=== PATIENT | male | born 1970 | race Caucasian/White ===

== ENCOUNTER 2018-04-16 17:52 | Inpatient (IN) | payer OTHER ==
--- NOTE | 2018-04-16 20:49 | HP ---
CIWA Score - CIWA Score Nausea/Vomitin Muscle Tremors: 4-Moderate,w/Arms Extend Anxiety: 4-Mod. Anxious/Guarded Agitation: 4-Moderately Restless Paroxysmal Sweats: 1-Minimal Palms Moist Orientation: 1-Uncertain about Date Tacttile Disturbances: 0-None Auditory Disturbances: 0-None Visual Disturbances: 0-None Headache: 0-None Present CIWA-Ar Total Score: 17 Admission ROS S - HPI Chief Complaint: Alcohol withdrawal symptoms Allergies/Adverse Reactions: Allergies Allergy/AdvReac Type Severity Reaction Status Date / Time No Known Allergies Allergy Verified 04/16/18 20:16 History of Present Illness: 48 years old male with a long history of alcohol dependence is seeking admission to detox. Patient was in detox at [facility] in September 2017 and reports insignificant period of sobriety. He has medical history of depression and anxiety. He was referred from [facility] ER today. Patient reports that he is homeless and has a son. This is his first admission to [facility]. Exam Limitations: No Limitations - Ebola screening Have you traveled outside of the country in the last 21 days: No Have you had contact with anyone from an Ebola affected area: No Have you been sick,other than usual withdrawal symptoms: No Do you have a fever: No - Review of Systems Constitutional: Chills, Loss of Appetite, Malaise, Night Sweats, Changes in sleep EENT: reports: No Symptoms Reported Respiratory: reports: No Symptoms reported Cardiac: reports: No Symptoms Reported GI: reports: Diarrhea (x 2), Nausea, Poor Appetite, Poor Fluid Intake, Abdominal cramping : reports: No Symptoms Reported Musculoskeletal: reports: Back Pain, Muscle Pain Integumentary: reports: Dryness, Flushing Neuro: reports: Tingling, Tremors Endocrine: reports: No Symptoms Reported Hematology: reports: No Symptoms Reported Psychiatric: reports: Agitated, Anxious, Depressed Other Systems: Reviewed and Negative Patient History - Patient Medical History Hx Anemia: No Hx Asthma: No Hx Chronic Obstructive Pulmonary Disease (COPD): No Hx Cancer: No Hx Cardiac Disorders: No Hx Hypertension: No Hx Hypercholesterolemia: No Hx Pacemaker: No HX Cerebrovascular Accident: No Hx Seizures: No Hx Diabetes: No Hx Gastrointestinal Disorders: No Hx Liver Disease: No Hx Genitourinary Disorders: No Hx Sexually Transmitted Disorders: No Hx Renal Disease (ESRD): No Hx Thyroid Disease: No Hx Human Immunodeficiency Virus (HIV): No (Negative 2016) Hx Hepatitis C: No Hx Depression: Yes (Not on medication) Hx Suicide Attempt: No (Denies suicide attempt and suicidal ideation at this time) Hx Bipolar Disorder: No Hx Schizophrenia: No Other Medical History: Anxiety - Not on medication - Patient Surgical History Past Surgical History: Yes Hx Neurologic Surgery: No Hx Cataract Extraction: No Hx Cardiac Surgery: No Hx Lung Surgery: No Hx Breast Surgery: No Hx Breast Biopsy: No Hx Abdominal Surgery: No Hx Appendectomy: No Hx Cholecystectomy: No Hx Genitourinary Surgery: No Hx Section: No Hx Orthopedic Surgery: Yes Other Surgical History: BACK SURGERY IN 2012 Anesthesia Reaction: No - PPD History Previous Implant?: Yes Documented Results: Negative w/o proof Implanted On Prior [facility] Admission?: No PPD to be Administered?: Yes - Reproductive History Patient is a Female of Child Bearing Age (11 -55 yrs old): No (MALE) - Smoking Cessation Smoking history: Never smoked Have you smoked in the past 12 months: No Hx Chewing Tobacco Use: No Initiated information on smoking cessation: No - Substances Abused Alcohol Route: Oral Frequency: Daily Amount used: 3 PINTS VODKA Age of first use: 11 Date of Last Use: 04/16/18 Heroin Route: Inhalation Frequency: 1-3 times last 30 days Amount used: 1 BUNDLE Age of first use: 47 Date of Last Use: 04/02/18 Family Disease History - Family Disease History Family Disease History: CA: Father (Lung), Mother (breast) Admission Physical Exam BHS - Vital Signs Vital Signs: Vital Signs - 24 hr 04/16/18 18:18 Temperature 98.7 F Pulse Rate 93 H Respiratory 18 Rate Blood Pressure 138/84 - Physical General Appearance: Yes: Moderate Distress, Tremorous, Irritable, Sweating, Anxious HEENTM: Yes: EOMI, Normal ENT Inspection, Normocephalic, Normal Voice, ALMITA Respiratory: Yes: Lungs Clear, Normal Breath Sounds, No Respiratory Distress Neck: Yes: Supple Breast: Yes: Breast Exam Deferred Cardiology: Yes: Tachycardia Abdominal: Yes: Normal Bowel Sounds, Soft Genitourinary: Yes: Within Normal Limits Back: Yes: Normal Inspection Musculoskeletal: Yes: Within Normal Limits Extremities: Yes: Tremors Neurological: Yes: Alert, Normal Mood/Affect Integumentary: Yes: Dry Lymphatic: Yes: Within Normal Limits - Diagnostic (1) Alcohol dependence with uncomplicated withdrawal Current Visit: Yes Status: Chronic (2) Depression Current Visit: Yes Status: Chronic (3) Anxiety Current Visit: Yes Status: Chronic Cleared for Admission [facility] - Detox or Rehab [facility] Level of Care: Medically Managed Detox Regimen/Protocol: Librium [facility] Breath Alcohol Content Breath Alcohol Content: 0.251 Urine Drug Screen - Results Drug Screen Negative: No Urine Drug Screen Results: BZO-Benzodiazepines
[2018-04-16] MEDS ORDERED: P-EPHED 60MG/TRIPROLIDI 2.5MG TABLET PO PRN (20:56)
[2018-04-16] MEDS ORDERED: MAG HYDROX/AL HYDROX/SIMETH 30 ML UNIT-DOSE CUP PO PRN (20:56)
[2018-04-16] MEDS ORDERED: chlordiazePOXIDE HCL 25 MG CAPSULE PO PRN (20:56)
[2018-04-16] MEDS ORDERED: ACETAMINOPHEN 325 MG TABLET (FP) PO PRN (20:56)
[2018-04-16] MEDS ORDERED: MENTHOL/PHENOL 1 EACH UD MM PRN (20:56)
[2018-04-16] MEDS ORDERED: NICOTINE POLACRILEX 2 MG GUM BC PRN (20:56)
[2018-04-16] MEDS ORDERED: MAGNESIUM HYDROX 2400MG/30ML ORAL SUSPENSION 30 ML CUP PO PRN (20:56)
[2018-04-16] MEDS ORDERED: LOPERAMIDE HCL 2 MG CAPSULE PO PRN (20:56)
[2018-04-16] MEDS ORDERED: MAGNESIUM CITRATE 300 ML BOTTLE PO PRN (20:56)
[2018-04-16] MEDS ORDERED: guaiFENesin/D-METHORPHAN HB 10 ML UNIT-DOSE CUPS PO PRN (20:56)
[2018-04-16] MEDS: chlordiazePOXIDE HCL 25 MG CAPSULE PO SCH (22:25)
[2018-04-16] MEDS: MELATONIN 5 MG TABLETS PO PRN (22:25)
[2018-04-16] MEDS: THIAMINE HCL 100 MG TABLET (FP) PO SCH (22:25)
[2018-04-16 23:04] LABS: URINE APPEARANCE CLEAR; URINE BILIRUBIN NEGATIVE (<2.0 mg/dL); URINE COLOR LTYELLOW; URINE GLUCOSE (UA) NEGATIVE (NEGATIVE); URINE KETONE NEGATIVE (NEGATIVE); URINE LEUK ESTERASE NEGATIVE (NEGATIVE); URINE NITRITE NEGATIVE (NEGATIVE); URINE PROTEIN NEGATIVE (NEGATIVE); URINE UROBILINOGEN NEGATIVE mg/dL (0.2-1.0)
[2018-04-17] MEDS: chlordiazePOXIDE HCL 25 MG CAPSULE PO SCH ×4 (06:44→22:15)
--- NOTE | 2018-04-17 10:15 | CONSULT ---
[facility] Psychiatric Consult - Data Date of interview: 04/17/18 Admission source: [facility] Identifying data: Patient is a 48 year old male, single father of one son, unemployed and currenmtly homeless. Substance Abuse History: drinking 3 pints of vodka daily, heroin 1-3 times last month. Medical History: back surgery in 2012. Psychiatric History: patient reports no history of psychiatric treatment, he is not ok now and does not need any medications. Physical/Sexual Abuse/Trauma History: denies Mental Status Exam - Mental Status Exam Alert and Oriented to: Time, Place, Person Cognitive Function: Good Patient Appearance: Unkempt Mood: Irritable Affect: Appropriate Patient Behavior: Cooperative Voice Loudness: Normal Thought Process: Intact Hallucinations: Denies Suicidal Ideation: Denies Homicidal Ideation: Denies Insight/Judgement: Fair Sleep: Fair Appetite: Fair Muscle strength/Tone: Normal Psychiatric Findings - Problem List ([place] 1, 2,3) (1) Opioid abuse Current Visit: Yes Status: Acute (2) Alcohol-induced anxiety disorder Current Visit: Yes Status: Acute (3) Alcohol dependence with uncomplicated withdrawal Current Visit: Yes Status: Chronic - Initial Treatment Plan Initial Treatment Plan: continue detox. protocol, no psychotropic medications at this point.
[2018-04-17 10:31] LABS: HEMATOCRIT 37.3 % (35.4-49); HEMOGLOBIN 12.3 GM/dL (11.7-16.9); MCH 29.6 pg (25.7-33.7); MCHC 33.1 g/dl (32.0-35.9); MEAN CELL VOLUME 89.3 fl (80-96); MEAN PLT VOLUME 6.7 fl (7.5-11.1); PLATELET COUNT 258 K/MM3 (134-434); RBC 4.17 M/mm3 (4.00-5.60); RDW 17.8 % (11.9-15.9); WHITE BLOOD COUNT 4.7 K/mm3 (4.0-10.0)
[2018-04-17 10:48] LABS: ALBUMIN 3.1 g/dl (3.4-5.0); ANION GAP 9 (8-16); BLOOD UREA NITROGEN 16 mg/dL (7-18); CALCIUM 8.2 mg/dL (8.5-10.1); CHLORIDE 108 mmol/L (98-107); CO2 25 mmol/L (21-32); GLUCOSE,RANDOM 76 mg/dL (74-106); POTASSIUM 3.7 mmol/L (3.5-5.1); SODIUM 142 mmol/L (136-145)
[2018-04-17 10:59] LABS: ALK PHOS 62 U/L (45-117); BILIRUBIN,TOTAL 0.6 mg/dL (0.2-1.0); SGOT/AST 31 U/L (15-37); SGPT/ALT 22 U/L (12-78); TOT PROT 6.4 g/dl (6.4-8.2)
[2018-04-17] MEDS: PRENATAL VITAMINS W/ FOLIC ACID TABLET (FP) PO SCH (11:37)
[2018-04-17] MEDS: NICOTINE 14 MG/24 HOURS TOPICAL PATCH TD SCH (11:38)
--- NOTE | 2018-04-17 13:56 | PN ---
S CIWA - CIWA Score Nausea/Vomitin Muscle Tremors: 3 Anxiety: 3 Agitation: 2 Paroxysmal Sweats: 1-Minimal Palms Moist Orientation: 0-Oriented Tacttile Disturbances: 1-Very Mild Itch/Numbness Auditory Disturbances: 1-Very Mild Visual Disturbances: 0-None Headache: 2-Mild CIWA-Ar Total Score: 16 BHS Progress Note (SOAP) Subjective: ALERT,IRRITABLE,ANXIOUS,INTERRUPTED SLEEP,TREMOR Objective: 04/17/18 13:54 Vital Signs Temperature 97.7 F 04/17/18 09:37 Pulse Rate 78 04/17/18 09:37 Respiratory Rate 20 04/17/18 09:37 Blood Pressure 148/86 04/17/18 09:37 O2 Sat by Pulse Oximetry (%) Laboratory Last Values WBC 4.7 K/mm3 (4.0-10.0) 04/17/18 07:55 RBC 4.17 M/mm3 (4.00-5.60) 04/17/18 07:55 Hgb 12.3 GM/dL (11.7-16.9) 04/17/18 07:55 Hct 37.3 % (35.4-49) 04/17/18 07:55 MCV 89.3 fl (80-96) 04/17/18 07:55 MCH 29.6 pg (25.7-33.7) 04/17/18 07:55 MCHC 33.1 g/dl (32.0-35.9) 04/17/18 07:55 RDW 17.8 % (11.9-15.9) H 04/17/18 07:55 Plt Count 258 K/MM3 (134-434) 04/17/18 07:55 MPV 6.7 fl (7.5-11.1) L 04/17/18 07:55 Sodium 142 mmol/L (136-145) 04/17/18 07:55 Potassium 3.7 mmol/L (3.5-5.1) 04/17/18 07:55 Chloride 108 mmol/L (98-107) H 04/17/18 07:55 Carbon Dioxide 25 mmol/L (21-32) 04/17/18 07:55 Anion Gap 9 (8-16) 04/17/18 07:55 BUN 16 mg/dL (7-18) 04/17/18 07:55 Creatinine 1.0 mg/dL (0.7-1.3) 04/17/18 07:55 Creat Clearance w eGFR > 60 (>60) 04/17/18 07:55 Random Glucose 76 mg/dL (74-106) 04/17/18 07:55 Calcium 8.2 mg/dL (8.5-10.1) L 04/17/18 07:55 Total Bilirubin 0.6 mg/dL (0.2-1.0) 04/17/18 07:55 AST 31 U/L (15-37) 04/17/18 07:55 ALT 22 U/L (12-78) 04/17/18 07:55 Alkaline Phosphatase 62 U/L (45-117) 04/17/18 07:55 Total Protein 6.4 g/dl (6.4-8.2) 04/17/18 07:55 Albumin 3.1 g/dl (3.4-5.0) L 04/17/18 07:55 Urine Color Ltyellow 04/16/18 22:50 Urine Appearance Clear 04/16/18 22:50 Urine pH 7.0 (5.0-8.0) 04/16/18 22:50 Ur Specific [place] 1.016 (1.001-1.035) 04/16/18 22:50 Urine Protein Negative (NEGATIVE) 04/16/18 22:50 Urine Glucose (UA) Negative (NEGATIVE) 04/16/18 22:50 Urine Ketones Negative (NEGATIVE) 04/16/18 22:50 Urine Blood Negative (NEGATIVE) 04/16/18 22:50 Urine Nitrite Negative (NEGATIVE) 04/16/18 22:50 Urine Bilirubin Negative (<2.0 mg/dL) 04/16/18 22:50 Urine Urobilinogen Negative mg/dL (0.2-1.0) 04/16/18 22:50 Ur Leukocyte Esterase Negative (NEGATIVE) 04/16/18 22:50 RPR Titer Nonreactive (NONREACTIVE) 04/17/18 07:55 Assessment: 04/17/18 13:55 WITHDRAWAL SYMPTOM Plan: CONTINUE DETOX
[2018-04-17] MEDS: MELATONIN 5 MG TABLETS PO PRN (22:15)
[2018-04-17] MEDS: THIAMINE HCL 100 MG TABLET (FP) PO SCH (22:15)
[2018-04-18] MEDS: chlordiazePOXIDE HCL 25 MG CAPSULE PO SCH ×3 (05:26→16:45)
[2018-04-18] MEDS: NICOTINE 14 MG/24 HOURS TOPICAL PATCH TD SCH (10:05)
[2018-04-18] MEDS: PRENATAL VITAMINS W/ FOLIC ACID TABLET (FP) PO SCH (10:05)
--- NOTE | 2018-04-18 11:44 | PN ---
S CIWA - CIWA Score Nausea/Vomitin-Mild Nausea/No Vomiting Muscle Tremors: 4-Moderate,w/Arms Extend Anxiety: 3 Agitation: 3 Paroxysmal Sweats: 1-Minimal Palms Moist Orientation: 0-Oriented Tacttile Disturbances: 1-Very Mild Itch/Numbness Auditory Disturbances: 0-None Visual Disturbances: 0-None Headache: 0-None Present CIWA-Ar Total Score: 13 BHS Progress Note (SOAP) Subjective: sweat tremor anxiety irritable restlessness Objective: 04/18/18 11:44 Vital Signs Temperature 97.9 F 04/18/18 11:07 Pulse Rate 78 04/18/18 11:07 Respiratory Rate 20 04/18/18 11:07 Blood Pressure 121/79 04/18/18 11:07 O2 Sat by Pulse Oximetry (%) Laboratory Last Values WBC 4.7 K/mm3 (4.0-10.0) 04/17/18 07:55 RBC 4.17 M/mm3 (4.00-5.60) 04/17/18 07:55 Hgb 12.3 GM/dL (11.7-16.9) 04/17/18 07:55 Hct 37.3 % (35.4-49) 04/17/18 07:55 MCV 89.3 fl (80-96) 04/17/18 07:55 MCH 29.6 pg (25.7-33.7) 04/17/18 07:55 MCHC 33.1 g/dl (32.0-35.9) 04/17/18 07:55 RDW 17.8 % (11.9-15.9) H 04/17/18 07:55 Plt Count 258 K/MM3 (134-434) 04/17/18 07:55 MPV 6.7 fl (7.5-11.1) L 04/17/18 07:55 Sodium 142 mmol/L (136-145) 04/17/18 07:55 Potassium 3.7 mmol/L (3.5-5.1) 04/17/18 07:55 Chloride 108 mmol/L (98-107) H 04/17/18 07:55 Carbon Dioxide 25 mmol/L (21-32) 04/17/18 07:55 Anion Gap 9 (8-16) 04/17/18 07:55 BUN 16 mg/dL (7-18) 04/17/18 07:55 Creatinine 1.0 mg/dL (0.7-1.3) 04/17/18 07:55 Creat Clearance w eGFR > 60 (>60) 04/17/18 07:55 Random Glucose 76 mg/dL (74-106) 04/17/18 07:55 Calcium 8.2 mg/dL (8.5-10.1) L 04/17/18 07:55 Total Bilirubin 0.6 mg/dL (0.2-1.0) 04/17/18 07:55 AST 31 U/L (15-37) 04/17/18 07:55 ALT 22 U/L (12-78) 04/17/18 07:55 Alkaline Phosphatase 62 U/L (45-117) 04/17/18 07:55 Total Protein 6.4 g/dl (6.4-8.2) 04/17/18 07:55 Albumin 3.1 g/dl (3.4-5.0) L 04/17/18 07:55 Urine Color Ltyellow 04/16/18 22:50 Urine Appearance Clear 04/16/18 22:50 Urine pH 7.0 (5.0-8.0) 04/16/18 22:50 Ur Specific [place] 1.016 (1.001-1.035) 04/16/18 22:50 Urine Protein Negative (NEGATIVE) 04/16/18 22:50 Urine Glucose (UA) Negative (NEGATIVE) 04/16/18 22:50 Urine Ketones Negative (NEGATIVE) 04/16/18 22:50 Urine Blood Negative (NEGATIVE) 04/16/18 22:50 Urine Nitrite Negative (NEGATIVE) 04/16/18 22:50 Urine Bilirubin Negative (<2.0 mg/dL) 04/16/18 22:50 Urine Urobilinogen Negative mg/dL (0.2-1.0) 04/16/18 22:50 Ur Leukocyte Esterase Negative (NEGATIVE) 04/16/18 22:50 RPR Titer Nonreactive (NONREACTIVE) 04/17/18 07:55 lab noted Assessment: 04/18/18 11:44 withdrawal sx Plan: continue detox
--- NOTE | 2018-04-18 13:28 | EKG ---
Test Reason : Blood Pressure : / mmHG Vent. Rate : 070 BPM Atrial Rate : 070 BPM P-R Int : 176 ms QRS Dur : 120 ms QT Int : 416 ms P-R-T Axes : 031 -37 -09 degrees QTc Int : 449 ms NORMAL SINUS RHYTHM LEFT AXIS DEVIATION NON-SPECIFIC INTRA-VENTRICULAR CONDUCTION DELAY NONSPECIFIC T WAVE ABNORMALITY ABNORMAL ECG NO PREVIOUS ECGS AVAILABLE Confirmed by MD Nicole, Merlin ([id number]) on 04/18/2018 1:27:54 PM Referred By: Rick Cruz Confirmed By:Merlin Rivera MD
[2018-04-18] MEDS: IBUPROFEN 400 MG TABLET (FP) PO PRN (16:45)
[2018-04-18] MEDS: chlordiazePOXIDE 5 MG CAPSULE PO SCH (22:15)
[2018-04-18] MEDS: THIAMINE HCL 100 MG TABLET (FP) PO SCH (22:15)
[2018-04-18] MEDS: MELATONIN 5 MG TABLETS PO PRN (22:17)
[2018-04-19] MEDS: chlordiazePOXIDE 5 MG CAPSULE PO SCH ×3 (06:02→17:47)
[2018-04-19] MEDS: IBUPROFEN 400 MG TABLET (FP) PO PRN ×2 (06:04→22:09)
[2018-04-19] MEDS: PRENATAL VITAMINS W/ FOLIC ACID TABLET (FP) PO SCH (10:06)
[2018-04-19] MEDS: NICOTINE 14 MG/24 HOURS TOPICAL PATCH TD SCH (10:07)
--- NOTE | 2018-04-19 11:24 | PN ---
BHS Progress Note (SOAP) Subjective: feeling better no tremor less sweat social with peers in day room Objective: 04/19/18 11:23 Vital Signs Temperature 97.7 F 04/19/18 10:02 Pulse Rate 79 04/19/18 10:02 Respiratory Rate 18 04/19/18 10:02 Blood Pressure 114/65 04/19/18 10:02 O2 Sat by Pulse Oximetry (%) Laboratory Last Values WBC 4.7 K/mm3 (4.0-10.0) 04/17/18 07:55 RBC 4.17 M/mm3 (4.00-5.60) 04/17/18 07:55 Hgb 12.3 GM/dL (11.7-16.9) 04/17/18 07:55 Hct 37.3 % (35.4-49) 04/17/18 07:55 MCV 89.3 fl (80-96) 04/17/18 07:55 MCH 29.6 pg (25.7-33.7) 04/17/18 07:55 MCHC 33.1 g/dl (32.0-35.9) 04/17/18 07:55 RDW 17.8 % (11.9-15.9) H 04/17/18 07:55 Plt Count 258 K/MM3 (134-434) 04/17/18 07:55 MPV 6.7 fl (7.5-11.1) L 04/17/18 07:55 Sodium 142 mmol/L (136-145) 04/17/18 07:55 Potassium 3.7 mmol/L (3.5-5.1) 04/17/18 07:55 Chloride 108 mmol/L (98-107) H 04/17/18 07:55 Carbon Dioxide 25 mmol/L (21-32) 04/17/18 07:55 Anion Gap 9 (8-16) 04/17/18 07:55 BUN 16 mg/dL (7-18) 04/17/18 07:55 Creatinine 1.0 mg/dL (0.7-1.3) 04/17/18 07:55 Creat Clearance w eGFR > 60 (>60) 04/17/18 07:55 Random Glucose 76 mg/dL (74-106) 04/17/18 07:55 Calcium 8.2 mg/dL (8.5-10.1) L 04/17/18 07:55 Total Bilirubin 0.6 mg/dL (0.2-1.0) 04/17/18 07:55 AST 31 U/L (15-37) 04/17/18 07:55 ALT 22 U/L (12-78) 04/17/18 07:55 Alkaline Phosphatase 62 U/L (45-117) 04/17/18 07:55 Total Protein 6.4 g/dl (6.4-8.2) 04/17/18 07:55 Albumin 3.1 g/dl (3.4-5.0) L 04/17/18 07:55 Urine Color Ltyellow 04/16/18 22:50 Urine Appearance Clear 04/16/18 22:50 Urine pH 7.0 (5.0-8.0) 04/16/18 22:50 Ur Specific [place] 1.016 (1.001-1.035) 04/16/18 22:50 Urine Protein Negative (NEGATIVE) 04/16/18 22:50 Urine Glucose (UA) Negative (NEGATIVE) 04/16/18 22:50 Urine Ketones Negative (NEGATIVE) 04/16/18 22:50 Urine Blood Negative (NEGATIVE) 04/16/18 22:50 Urine Nitrite Negative (NEGATIVE) 04/16/18 22:50 Urine Bilirubin Negative (<2.0 mg/dL) 04/16/18 22:50 Urine Urobilinogen Negative mg/dL (0.2-1.0) 04/16/18 22:50 Ur Leukocyte Esterase Negative (NEGATIVE) 04/16/18 22:50 RPR Titer Nonreactive (NONREACTIVE) 04/17/18 07:55 lab noted Assessment: 04/19/18 11:24 mild withdrawal sx Plan: medically supervised detox
[2018-04-19] MEDS: chlordiazePOXIDE HCL 10 MG CAPSULE PO SCH (22:08)
[2018-04-19] MEDS: THIAMINE HCL 100 MG TABLET (FP) PO SCH (22:08)
[2018-04-19] MEDS: MELATONIN 5 MG TABLETS PO PRN (22:08)
[2018-04-20] MEDS: chlordiazePOXIDE HCL 10 MG CAPSULE PO SCH (07:12)
[2018-04-20 07:50] VITALS: BP 124/74; PULSE 72; TEMP 97.5
--- NOTE | 2018-04-20 10:54 | DS ---
[facility] Detox Discharge Summary Admission Date: 04/16/18 Discharge Date: 04/20/18 - History Present History: Alcohol Dependence Additional Comments: 48 years old male admitted 04/16/18 for alcohol withdrawal sx completed alcohol detox regimen tolerated well denies alcohol withdrawal sx alert oriented x 3 no acute distress aftercare as per patient preference that [facility] for recovery "my friend pick me up" patient wants to maintain sober through recovery process - Physical Exam Results Vital Signs: Vital Signs Temperature 97.5 F L 04/20/18 07:49 Pulse Rate 72 04/20/18 07:49 Respiratory Rate 18 04/20/18 07:49 Blood Pressure 124/74 04/20/18 07:49 O2 Sat by Pulse Oximetry (%) Pertinent Admission Physical Exam Findings: withdrawal sx Vital Signs Temperature 97.5 F L 04/20/18 07:49 Pulse Rate 72 04/20/18 07:49 Respiratory Rate 18 04/20/18 07:49 Blood Pressure 124/74 04/20/18 07:49 O2 Sat by Pulse Oximetry (%) Laboratory Last Values WBC 4.7 K/mm3 (4.0-10.0) 04/17/18 07:55 RBC 4.17 M/mm3 (4.00-5.60) 04/17/18 07:55 Hgb 12.3 GM/dL (11.7-16.9) 04/17/18 07:55 Hct 37.3 % (35.4-49) 04/17/18 07:55 MCV 89.3 fl (80-96) 04/17/18 07:55 MCH 29.6 pg (25.7-33.7) 04/17/18 07:55 MCHC 33.1 g/dl (32.0-35.9) 04/17/18 07:55 RDW 17.8 % (11.9-15.9) H 04/17/18 07:55 Plt Count 258 K/MM3 (134-434) 04/17/18 07:55 MPV 6.7 fl (7.5-11.1) L 04/17/18 07:55 Sodium 142 mmol/L (136-145) 04/17/18 07:55 Potassium 3.7 mmol/L (3.5-5.1) 04/17/18 07:55 Chloride 108 mmol/L (98-107) H 04/17/18 07:55 Carbon Dioxide 25 mmol/L (21-32) 04/17/18 07:55 Anion Gap 9 (8-16) 04/17/18 07:55 BUN 16 mg/dL (7-18) 04/17/18 07:55 Creatinine 1.0 mg/dL (0.7-1.3) 04/17/18 07:55 Creat Clearance w eGFR > 60 (>60) 04/17/18 07:55 Random Glucose 76 mg/dL (74-106) 04/17/18 07:55 Calcium 8.2 mg/dL (8.5-10.1) L 04/17/18 07:55 Total Bilirubin 0.6 mg/dL (0.2-1.0) 04/17/18 07:55 AST 31 U/L (15-37) 04/17/18 07:55 ALT 22 U/L (12-78) 04/17/18 07:55 Alkaline Phosphatase 62 U/L (45-117) 04/17/18 07:55 Total Protein 6.4 g/dl (6.4-8.2) 04/17/18 07:55 Albumin 3.1 g/dl (3.4-5.0) L 04/17/18 07:55 Urine Color Ltyellow 04/16/18 22:50 Urine Appearance Clear 04/16/18 22:50 Urine pH 7.0 (5.0-8.0) 04/16/18 22:50 Ur Specific [place] 1.016 (1.001-1.035) 04/16/18 22:50 Urine Protein Negative (NEGATIVE) 04/16/18 22:50 Urine Glucose (UA) Negative (NEGATIVE) 04/16/18 22:50 Urine Ketones Negative (NEGATIVE) 04/16/18 22:50 Urine Blood Negative (NEGATIVE) 04/16/18 22:50 Urine Nitrite Negative (NEGATIVE) 04/16/18 22:50 Urine Bilirubin Negative (<2.0 mg/dL) 04/16/18 22:50 Urine Urobilinogen Negative mg/dL (0.2-1.0) 04/16/18 22:50 Ur Leukocyte Esterase Negative (NEGATIVE) 04/16/18 22:50 RPR Titer Nonreactive (NONREACTIVE) 04/17/18 07:55 lab noted - Treatment Hospital Course: Detox Protocol Followed, Detoxed Safely, Responded well, Discharged Condition Good, Rehab Referral Accepted Patient has Accepted a Rehab Referral to: [facility] - Medication Discharge Medications: Ambulatory Orders NK [No Known Home Medication] 04/16/18 - Diagnosis (1) Alcohol dependence with uncomplicated withdrawal Status: Acute (2) Depression Status: Suspected Qualifiers: Depression Type: dysthymia Qualified Code(s): F34.1 - Dysthymic disorder - AMA Did Patient Leave Against Medical Advice: No
== END 2018-04-20 08:15 | disposition home or self-care (01) | DRG 773 ==
LOC: YASAS 17:52 → Y6N 20:25
PROVIDERS: ADMIT Surgery; ATTEND Surgery
PROC: HZ2ZZZZ Detoxification Services for Substance Abuse Treatment (ICD-10-PCS; principal; 2018-04-16)
DX: F10.230 Alcohol dependence with withdrawal, uncomplicated (principal); F10.280 Alcohol dependence with alcohol-induced anxiety disorder; F11.10 Opioid abuse, uncomplicated; F32.9 Major depressive disorder, single episode, unspecified; F41.9 Anxiety disorder, unspecified; R00.0 Tachycardia, unspecified; Z59.0 Homelessness
CPT/HCPCS: 36415; 80053; 81003; 85027; 86593; 93005; 93010